=== PATIENT | female | born 1990 | race Caucasian/White ===

== ENCOUNTER 2018-11-16 11:02 | Emergency (ER) | payer SELFPAY ==
[2018-11-16 11:07] VITALS: BP 106/61; PULSE 103; TEMP 98.3; BMI 21.2
--- NOTE | 2018-11-16 12:04 | PDOC ---
History of Present Illness - General Chief Complaint: Shortness of Breath Stated Complaint: SOB Time Seen by Provider: 11/16/18 11:38 - History of Present Illness Initial Comments: 11/16/18 11:58 28 y/o F w/PMH of anxiety presents for evaluation of rapid heart rate and dizziness which occurred while in [place]ae[place] this morning, symptoms have since resolved. She was diagnosed with anxiety but never followed up and takes no meds Past History - Past Medical History Allergies/Adverse Reactions: Allergies Allergy/AdvReac Type Severity Reaction Status Date / Time No Known Allergies Allergy Verified 11/16/18 11:07 COPD: No - Psycho Social/Smoking Cessation Hx Smoking History: Never smoked Review of Systems - Review of Systems Cardiac (ROS): Yes: Palpitations. No: Chest Pain *Physical Exam - Vital Signs Last Vital Signs Temp Pulse Resp BP Pulse Ox 98.3 F 103 H 18 106/61 98 11/16/18 11:05 11/16/18 11:05 11/16/18 11:05 11/16/18 11:05 11/16/18 11:05 - Physical Exam General Appearance: Yes: Nourished, Appropriately Dressed. No: Apparent Distress HEENT: positive: Normal ENT Inspection, Normal Voice, Symmetrical, TMs Normal, Pharynx Normal Neck: positive: Trachea midline, Supple. negative: Tender Respiratory/Chest: positive: Lungs Clear, Normal Breath Sounds. negative: Chest Tender, Respiratory Distress, Accessory Muscle Use Cardiovascular: positive: Regular Rate, S1, S2. negative: Murmur, Tachycardia Gastrointestinal/Abdominal: positive: Flat Musculoskeletal: positive: Normal Inspection Extremity: positive: Normal Inspection, Normal Range of Motion Integumentary: positive: Normal Color, Dry, Warm Neurologic: positive: hospice clinical manager II-XII NML intact, Fully Oriented, Alert, Normal Mood/ Affect, Normal Response Medical Decision Making - Medical Decision Making 11/16/18 12:01 Normal EKG, symptoms resolved. I will have pt f/u with cardiology and her PCP as well. Nothing to do emergently Discharge - Discharge Information Problems reviewed: Yes Clinical Impression/Diagnosis: Anxiety Condition: Improved Disposition: HOME - Admission No - Follow up/Referral Referrals: Ashish Erwin MD [Staff Physician] - Jazz Silva MD [Staff Physician] - - Patient Discharge Instructions Patient Printed Discharge Instructions: DI for Anxiety -- Adult Additional Instructions: Return to the emergency room for worsening symptoms. Follow up with both primary care physician as well as cardiology without fail in 1-2 days for further evaluation and treatment options. - Post Discharge Activity
--- NOTE | 2018-11-16 16:44 | EKG ---
Test Reason : Blood Pressure : / mmHG Vent. Rate : 078 BPM Atrial Rate : 078 BPM P-R Int : 130 ms QRS Dur : 072 ms QT Int : 378 ms P-R-T Axes : 061 049 038 degrees QTc Int : 430 ms NORMAL SINUS RHYTHM NORMAL ECG NO PREVIOUS ECGS AVAILABLE Confirmed by JARAD POE MD ([id number]) on 11/16/2018 4:43:52 PM Referred By: Confirmed By:JARAD POE MD
== END 2018-11-16 12:12 | disposition home or self-care (01) ==
LOC: JERFT 11:02
DX: F41.9 Anxiety disorder, unspecified (principal)
CPT/HCPCS: 93005; 93010; 99282-25

== ENCOUNTER 2021-03-06 15:00 | Inpatient (IN) | payer OTHER ==
[2021-03-06 15:56] VITALS: BMI 29.0
[2021-03-06 16:22] LABS: BASO % 0.3 % (0-2.0); EOS % 0.1 % (0-4.5); HEMATOCRIT 30.2 % (32.4-45.2); HEMOGLOBIN 9.7 GM/dL (10.7-15.3); LYMPH % 18.2 % (8-40); MCH 25.7 pg (25.7-33.7); MCHC 32.2 g/dl (32.0-36.0); MEAN CELL VOLUME 79.8 fl (80-96); MEAN PLT VOLUME 8.2 fl (7.5-11.1); MONO % 9.3 % (3.8-10.2); NEUT % 72.1 % (42.8-82.8); PLATELET COUNT 298 10^3/uL (134-434); RBC 3.78 M/mm3 (3.60-5.2); RDW 15.6 % (11.6-15.6); WHITE BLOOD COUNT 7.5 K/mm3 (4.0-10.0)
[2021-03-06 16:43] LABS: INR 0.96 (0.83-1.09)
[2021-03-06] MEDS ORDERED: DEXTROSE 5%-LACTATED RINGERS 1,000 ML IV SCH (16:45)
[2021-03-06 16:46] LABS: ACTIVATED PTT 26.7 SECONDS (25.2-36.5)
[2021-03-06 17:10] LABS: CALCIUM 8.7 mg/dL (8.5-10.1)
[2021-03-06 17:11] LABS: BLOOD UREA NITROGEN 12.9 mg/dL (7-18)
[2021-03-06 17:14] LABS: CREATININE 0.7 mg/dL (0.55-1.3)
[2021-03-06 18:08] LABS: HIV INTERPRETATION NEGATIVE (NEGATIVE)
[2021-03-06] MEDS ORDERED: OXYTOCIN 30 UNITS in 0.9% NS 30 UNIT/500 ML INFUS.BAG IVPB ONE (18:46)
[2021-03-06] MEDS ORDERED: ELECTROLYTE-148 SOLN 1,000 ML IV SCH (19:00)
[2021-03-06] MEDS ORDERED: FENTANYL/BUPIVACAINE/NS/PF - PCEA - 50 ML DISP.SYRIN EP ONE (19:00)
[2021-03-06] MEDS ORDERED: OXYTOCIN 30 UNITS in 0.9% NS 30 UNIT/500 ML INFUS.BAG IVPB SCH (19:00)
[2021-03-06] MEDS ORDERED: BUPIVACAINE HCL/PF 0.25% (2.5MG/ML) 10 ML VIAL ONE (20:15)
[2021-03-06] MEDS ORDERED: NALOXONE HCL 0.4 MG/ML VIAL IVPUSH PRN (20:56)
[2021-03-06] MEDS ORDERED: FENTANYL/BUPIVACAINE/NS/PF - PCEA - 50 ML DISP.SYRIN EP SCH (21:00)
[2021-03-06] MEDS ORDERED: OXYTOCIN 20 UNITS in 0.9% NS 20 UNIT/1,000 ML INFUS.BAG IV ONE (22:34)
[2021-03-07] MEDS ORDERED: BISACODYL 10 MG SUPP.RECT RC PRN (00:23)
[2021-03-07] MEDS ORDERED: ACETAMINOPHEN 325 MG TABLET (FP) PO PRN (00:23)
[2021-03-07] MEDS ORDERED: BENZOCAINE 28 GM HEMORRHOIDAL OINTMENT TP PRN (00:23)
[2021-03-07] MEDS ORDERED: WITCH HAZEL 50% (TUCKS) 40 PAD/JAR PAD TP PRN (00:23)
[2021-03-07] MEDS ORDERED: BENZOCAINE 20% 57 GM BOTTLE TP PRN (00:23)
[2021-03-07] MEDS ORDERED: oxyCODONE HCL 5 MG TABLET PO PRN (00:23)
[2021-03-07] MEDS ORDERED: METHYLERGONOVINE MALEATE 0.2 MG/1 ML AMP IM PRN (00:23)
[2021-03-07] MEDS ORDERED: OXYTOCIN 20 UNITS in 0.9% NS 20 UNIT/1,000 ML INFUS.BAG IV SCH (00:30)
[2021-03-07 07:44] LABS: BASO % 0.2 % (0-2.0); HEMATOCRIT 27.2 % (32.4-45.2); HEMOGLOBIN 8.5 GM/dL (10.7-15.3); LYMPH % 14.2 % (8-40); MCHC 31.1 g/dl (32.0-36.0); MEAN CELL VOLUME 80.4 fl (80-96); MEAN PLT VOLUME 8.1 fl (7.5-11.1); MONO % 8.4 % (3.8-10.2); NEUT % 77.2 % (42.8-82.8); PLATELET COUNT 240 10^3/uL (134-434); RBC 3.38 M/mm3 (3.60-5.2); RDW 15.8 % (11.6-15.6); WHITE BLOOD COUNT 11.5 K/mm3 (4.0-10.0)
[2021-03-07] MEDS: PRENATAL VITAMINS W/ FOLIC ACID TABLET (FP) PO SCH (10:56)
[2021-03-07] MEDS: IBUPROFEN 600 MG TABLET (FP) PO PRN (14:39)
[2021-03-08] MEDS: IBUPROFEN 600 MG TABLET (FP) PO PRN ×2 (05:20→10:09)
[2021-03-08] MEDS: PRENATAL VITAMINS W/ FOLIC ACID TABLET (FP) PO SCH (09:02)
[2021-03-08 11:07] VITALS: BP 104/70; PULSE 83; TEMP 98.1
[2021-03-08] MEDS ORDERED: SENNOSIDES/DOCUSATE COMBO (SENNA PLUS) TABLET (UD) PO PRN (22:00)
== END 2021-03-08 13:45 | disposition home or self-care (01) | DRG 560 ==
LOC: JLDR 15:00 → J3W 03-07 02:39
PROVIDERS: ADMIT Obstetrics & Gynecology; ATTEND Obstetrics & Gynecology
PROC: 0HQ9XZZ Repair Perineum Skin, External Approach (ICD-10-PCS; principal; 2021-03-07)
PROC: 10E0XZZ Delivery of Products of Conception, External Approach (ICD-10-PCS; 2021-03-07)
DX: O70.0 First degree perineal laceration during delivery (principal); Z3A.39 39 weeks gestation of pregnancy; Z37.0 Single live birth
CPT/HCPCS: 36415; 59409; 80048; 85025; 85610; 85730; 86780; 86850; 86900; 86901; 87389; C9803; U0003; U0005

== ENCOUNTER 2022-12-05 12:30 | Inpatient (IN) | payer OTHER ==
[2022-12-05] MEDS ORDERED: ELECTROLYTE-148 SOLN 1,000 ML IV SCH (13:00)
[2022-12-05 13:29] LABS: BASO % 0.6 % (0-2.0); EOS % 0.1 % (0-4.5); HEMATOCRIT 25.8 % (32.4-45.2); HEMOGLOBIN 7.9 GM/dL (10.7-15.3); MCH 21.4 pg (25.7-33.7); MCHC 30.7 g/dl (32.0-36.0); MEAN CELL VOLUME 69.7 fl (80-96); MONO % 6.3 % (3.8-10.2); PLATELET COUNT 348 10^3/uL (134-434); RDW 17.5 % (11.6-15.6); WHITE BLOOD COUNT 9.5 K/mm3 (4.0-10.0)
[2022-12-05 13:40] LABS: PROTHROMBIN TIME (PATIENT) 11.6 SEC (9.7-13.0)
[2022-12-05 13:43] LABS: ACTIVATED PTT 30.2 SECONDS (25.2-36.5)
[2022-12-05 13:45] VITALS: BMI 27.4
[2022-12-05 13:56] LABS: POTASSIUM 3.9 mmol/L (3.5-5.1)
[2022-12-05 13:57] LABS: CALCIUM 8.2 mg/dL (8.5-10.1)
[2022-12-05 14:01] LABS: CREATININE 0.8 mg/dL (0.55-1.3)
[2022-12-05 14:23] LABS: ANISOCYTOSIS 2+; MACROCYTOSIS 0
[2022-12-05 14:45] LABS: HIV INTERPRETATION NEGATIVE (NEGATIVE)
[2022-12-05] MEDS ORDERED: NALOXONE HCL 0.4 MG/ML VIAL IVPUSH PRN (17:17)
[2022-12-05] MEDS ORDERED: FENTANYL/BUPIVACAINE/NS/PF - PCEA - 50 ML DISP.SYRIN EP ONE (17:17)
[2022-12-05] MEDS ORDERED: FENTANYL CITRATE/PF 50 MCG/ML VIAL ONE (17:18)
[2022-12-05] MEDS ORDERED: BUPIVACAINE HCL/PF 0.25% (2.5MG/ML) 10 ML VIAL ONE (17:18)
[2022-12-05] MEDS ORDERED: FENTANYL/BUPIVACAINE/NS/PF - PCEA - 50 ML DISP.SYRIN EP SCH (17:30)
[2022-12-05] MEDS ORDERED: LIDOCAINE HCL 1% PRESERVATIVE FREE - 30ML VIAL ONE (20:19)
[2022-12-05] MEDS ORDERED: OXYTOCIN 20 UNITS in 0.9% NS 20 UNIT/1,000 ML INFUS.BAG IV ONE (20:19)
[2022-12-05] MEDS ORDERED: oxyCODONE HCL 5 MG TABLET PO PRN (21:02)
[2022-12-05] MEDS ORDERED: ACETAMINOPHEN 325 MG TABLET (FP) PO PRN (21:02)
[2022-12-05] MEDS ORDERED: BENZOCAINE 20% 57 GM BOTTLE TP PRN (21:02)
[2022-12-05] MEDS ORDERED: WITCH HAZEL 50% (TUCKS) 40 PAD/JAR PAD TP PRN (21:02)
[2022-12-05] MEDS ORDERED: BENZOCAINE 28 GM HEMORRHOIDAL OINTMENT TP PRN (21:02)
[2022-12-05] MEDS ORDERED: METHYLERGONOVINE MALEATE 0.2 MG/1 ML AMP IM PRN (21:02)
[2022-12-05] MEDS ORDERED: BISACODYL 10 MG SUPP.RECT RC PRN (21:02)
[2022-12-05] MEDS ORDERED: OXYTOCIN 20 UNITS in 0.9% NS 20 UNIT/1,000 ML INFUS.BAG IV SCH (21:15)
[2022-12-06] MEDS: FERROUS SO4 325 MG TABLET (FP) PO SCH ×2 (08:18→17:50)
[2022-12-06] MEDS ORDERED: FERROUS SO4 325 MG TABLET (FP) ONE (08:18)
[2022-12-06 08:50] LABS: BASO % 0.5 % (0-2.0); EOS % 0.2 % (0-4.5); HEMATOCRIT 26.1 % (32.4-45.2); HEMOGLOBIN 8.2 GM/dL (10.7-15.3); LYMPH % 20.1 % (8-40); MCH 22.4 pg (25.7-33.7); MCHC 31.3 g/dl (32.0-36.0); MEAN CELL VOLUME 71.7 fl (80-96); MEAN PLT VOLUME 8.1 fl (7.5-11.1); MONO % 11.1 % (3.8-10.2); NEUT % 68.1 % (42.8-82.8); PLATELET COUNT 277 10^3/uL (134-434); RBC 3.64 M/mm3 (3.60-5.2); RDW 19.3 % (11.6-15.6); WHITE BLOOD COUNT 11.7 K/mm3 (4.0-10.0)
[2022-12-06] MEDS ORDERED: PRENATAL VITAMINS W/ FOLIC ACID TABLET (FP) PO ONE (09:27)
[2022-12-06] MEDS: PRENATAL VITAMINS W/ FOLIC ACID TABLET (FP) PO SCH (09:28)
[2022-12-06] MEDS ORDERED: IBUPROFEN 600 MG TABLET (FP) PO ONE (09:31)
[2022-12-06] MEDS: IBUPROFEN 600 MG TABLET (FP) PO PRN ×2 (09:31→21:09)
[2022-12-06] MEDS ORDERED: SENNOSIDES/DOCUSATE COMBO (SENNA PLUS) TABLET (UD) PO PRN (22:00)
[2022-12-06 22:53] VITALS: RESP 18
[2022-12-07] MEDS: FERROUS SO4 325 MG TABLET (FP) PO SCH (09:30)
[2022-12-07] MEDS: IBUPROFEN 600 MG TABLET (FP) PO PRN (09:30)
[2022-12-07] MEDS: PRENATAL VITAMINS W/ FOLIC ACID TABLET (FP) PO SCH (09:30)
[2022-12-07 11:07] VITALS: BP 115/60; PULSE 90; TEMP 98
== END 2022-12-07 12:40 | disposition home or self-care (01) | DRG 807 ==
LOC: JLDR 12:30 → J3W 12-06 14:45
PROVIDERS: ADMIT Obstetrics & Gynecology; ATTEND Obstetrics & Gynecology
PROC: 10E0XZZ Delivery of Products of Conception, External Approach (ICD-10-PCS; principal; 2022-12-05)
PROC: 0HQ9XZZ Repair Perineum Skin, External Approach (ICD-10-PCS; 2022-12-05)
DX: O70.0 First degree perineal laceration during delivery (principal); Z37.0 Single live birth; Z3A.39 39 weeks gestation of pregnancy
CPT/HCPCS: 36415; 36430; 80048; 85025; 85610; 85730; 86780; 86850; 86900; 86901; 86922; 87389; P9058